=== PATIENT | male | born 1955 | race Caucasian/White ===

== ENCOUNTER 2021-12-30 00:12 | Emergency (ER) | payer MEDICARE, BC ==
[2021-12-30 01:33] LABS: ANION GAP 20.2 mEq/L (7-13); CHLORIDE,CL 96 mmol/L (98-107); ESTIMATED GFR 56 mL/min (>=60); SODIUM,NA 131 mmol/L (136-145)
== END 2021-12-30 03:15 | disposition home or self-care (01) ==
LOC: DL.ED 00:12
DX: S83.92XA Sprain of unspecified site of left knee, initial encounter (principal); S00.03XA Contusion of scalp, initial encounter; S70.01XA Contusion of right hip, initial encounter; Z79.899 Other long term (current) drug therapy; W01.10XA Fall on same level from slipping, tripping and stumbling with subsequent striking against unspecified object, initial encounter
CPT/HCPCS: 36415; 70450; 72125; 73562-LT; 80053; 80307; 83735; 85025; 99282; 99284